=== PATIENT | female | born 1960 | race Caucasian/White ===

== ENCOUNTER 2019-11-23 09:28 | Day surgery (SDC) | payer OTHER, SELFPAY ==
--- OUTSIDE RECORDS SUMMARY | 2019-11-23 10:15 | XMS REPORT | Summary of Care ---
:1960 Author Organization [facility] Address [address] [place] [address] Care Team Providers Name Role Phone RODGER Wayne Primary Care Provider Reason for Referral (Routine) Status Reason Specialty Diagnoses / Referred By Referred To Procedures Contact Contact New Request Orthopedic Surgery Diagnoses Left upper arm pain Julia Wayne Craig Procedures CONSULT/REFERRAL ORTHOPAEDIC SURGERY RODGER Dao MD [address] [place] [address] [address] [phone] Phone: Fax: Reason for Visit Reason Comments Follow-up F-Up on B/P and Shoulder Yudith n -Naproxen not helping Encounter Details Date Type Department Care Team Description 02/08/2019 Office Visit [facility] Family Sylwia Wayne Lef t upper arm pain Medicine - [place] RODGER (Primary Dx) [address] [place] [address] Dr [address] [place] [address] Drive [phone] [facility] [address] [place], [place] [address] Allergies No Known Allergiesdocumented as of this encounter (statuses as of 02/08/2019) Medications Medication Sig Dispensed Refills Start Date End Date Status omeprazole magnesium Take by mouth. 0 Active (PRILOSEC) 10 mg SuDR FA/mv,Ca,iron,min/lycope Take by mouth. 0 Active ne/lut (MULTIVITAL ORAL) Lactobacillus Take by mouth. 0 Active acidophilus (PROBIOTIC ORAL) Diclofenac Sodium 1 % Apply to 100 g 0 02/08/2019 Active gelIndications: Left area(s) 2 (two) upper arm pain times daily. documented as of this encounter (statuses as of 02/08/2019) Active Problems Problem Noted Date Endometrial cancer 08/14/2018 Post-menopausal bleeding 07/22/2018 documented as of this encounter (statuses as of 02/08/2019) Social History Tobacco Use Types Packs/Day Years Used Date Never Smoker Smokeless Tobacco: Never Used Alcohol Use Drinks/Week oz/Week Comments No Sex Assigned at Date Recorded Not on file Job Start Date Occupation Industry Not on file Not on file Not on file Travel History Travel Start Travel End No recent travel history available. documented as of this encounter Last Filed Vital Signs Vital Sign Reading Time Taken Comments Blood Pressure 136/76 02/08/2019 3:36 PM CDT Pulse 63 02/08/2019 3:36 PM CDT Temperature 36.3 C (97.4 F) 02/08/2019 3:36 PM CDT Respiratory Rate - - Oxygen Saturation - - Inhaled Oxygen Concentration - - Weight 98.9 kg (218 lb) 02/08/2019 3:36 PM CDT Height 167.6 cm (5' 6") 02/08/2019 3:36 PM CDT Body Mass Index 35.19 02/08/2019 3:36 PM CDT documented in this encounter Progress Notes Sylwia Wayne, RODGER - 02/08/2019 3:40 PM CDT Cc: Chief Complaint Patient presents with Follow-up F-Up on B/P and Shoulder Pain -Naproxen not helping Nilam Aguiar is a 58 year old female that presents to the clinic to follow up on blood pressure. She has been monitoring blood pressure at home daily- see log scanned in. Average home readings: 120-140/70's. She has not changed her diet or started exercising. She is watching her salt intake. Nilam has continued to have left upper arm/shoulder pain since the last visit. She took the Naproxen as prescribed, tried icy/hot, and has tried some shoulder exercises without relief. Xrays performed during last visit were normal. Arm Pain The incident occurred more than 1 week ago. There was no injury mechanism. The pain is present in the left shoulder and upper left arm. The quality of the pain is described as aching. The pain is at a severity of 6/10. The pain is moderate. The pain has been constant since the incident. Pertinent negatives include no chest pain, muscle weakness, numbness or tingling. The symptoms are aggravated by lifting. She has tried NSAIDs (& icy/hot) for the symptoms. The treatment provided no relief. Allergies Nilam has No Known Allergies. Medications Outpatient Medications Prior to Visit Medication Sig Dispense Refill FA/mv,Ca,iron,min/lycopene/lut (MULTIVITAL ORAL) Take by mouth. Lactobacillus acidophilus (PROBIOTIC ORAL) Take by mouth. omeprazole magnesium (PRILOSEC) 10 mg SuDR Take by mouth. No facility-administered medications prior to visit. Histories Past Medical History: Diagnosis Date Endometrial cancer 08/14/2018 Esophageal reflux Past Surgical History: Procedure Laterality Date CHOLECYSTECTOMY HYSTERECTOMY Aug 2018 TONSILLECTOMY in childhood TUBAL LIGATION Social History Socioeconomic History Marital status: Spouse name: Not on file Number of children: 4 Years of education: Not on file Highest education level: Not on file Occupational History Comment: [employer] Social Needs Financial resource strain: Not on file Food insecurity: Worry: Not on file Inability: Not on file Transportation needs: Medical: Not on file Non-medical: Not on file Tobacco Use Smoking status: Never Smoker Smokeless tobacco: Never Used Substance and Sexual Activity Alcohol use: No Drug use: No Sexual activity: Never Partners: Male control/protection: Surgical Comment: 6-7 years / Lifestyle Physical activity: Days per week: Not on file Minutes per session: Not on file Stress: Not on file Relationships Social connections: Talks on phone: Not on file Gets together: Not on file Attends christianity service: Not on file Active member of club or organization: Not on file Attends meetings of clubs or organizations: Not on file Relationship status: Not on file Intimate partner violence: Fear of current or ex partner: Not on file Emotionally abused: Not on file Physically abused: Not on file Forced sexual activity: Not on file Other Topics Concern Not on file Social History Narrative Denies domestic or physical violence within the home 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 Cardiovascular: Negative for chest pain. Musculoskeletal: Positive for arthralgias (left shoulder) and myalgias (left upper arm). Negative for back pain, gait problem and neck pain. Skin: Negative for rash. Neurological: Negative for tingling and numbness. Psychiatric/Behavioral: Negative for agitation and confusion. Vital Signs BP 136/76 (BP Location: Right arm, Patient Position: Sitting, BP CUFF SIZE: Adult Large) | Pulse 63 | Temp 36.3 C (97.4 F) (Tympanic) | Ht 5' 6" (1.676 m) | Wt 218 lb (98.9 kg) | BMI 35.19 kg/m Physical Exam Constitutional: She is oriented to person, place, and time. She appears well- developed and well-nourished. No distress. HENT: Head: Normocephalic and atraumatic. Eyes: Conjunctivae are normal. Cardiovascular: Normal rate, regular rhythm, normal heart sounds and intact distal pulses. Pulmonary/Chest: Effort normal and breath sounds normal. Musculoskeletal: Left shoulder: She exhibits tenderness. She exhibits no swelling, no crepitus, no deformity, normal pulse and normal strength. Left upper arm: She exhibits tenderness. She exhibits no bony tenderness, no swelling and no deformity. Arms: Negative empty can test. Neurological: She is alert and oriented to person, place, and time. She has normal strength. No sensory deficit. Gait normal. Skin: Skin is warm and dry. No rash noted. Psychiatric: She has a normal mood and affect. Her behavior is normal. Thought content normal. Nursing note and vitals reviewed. HISTORY: Pain for one month. FINDINGS: 2 frontal projection views of left shoulder obtained with the arm in internal and external rotation positions showed no acute fracture or dislocation. No significant changes of arthritis or aggressive bone lesions seen. No calcifications seen in the rotator cuff tendons. No cervical rib. Visualized left upper lung is clear. CONCLUSIONS: Normal study. Assessment/Plan 1. Left upper arm pain - CONSULT/REFERRAL ORTHOPAEDIC SURGERY - Diclofenac Sodium 1 % gel; Apply to area(s) 2 (two) times daily. Dispense: 100 g; Refill: 0 - educated about R.I.C.E.: Rest, Ice, Compress, and Elevate. - Rest and elevate affected area. May apply splint or gunner wrap if needed. - May apply ice pack to area 3-4 times daily, for 10-15 minutes or may use heating pad on low or warm compress 3-4 times daily for 10-15 minutes - May alternate ibuprofen and tylenol for pain or swelling Future Appointments In 2 days Hector Dumont MD [facility] Orthopaedic Surgery- [place], [facility] Plan of care, desired health behaviors, goals, and medication discussed with patient. Education resources provided and reviewed with AVS. Patient/guardian/family verbalized understanding & agrees to plan of care. This visit did not involve counseling and coordination that comprised more than 50% of the visit time. If applicable, the [place] [employer] database was accessed to review any controlled substance prescription claims data. The [employer] Scripts prescription claims data in [employer] was reviewed to assess patient compliance with the medication treatment plan. RODGER Phipps 02/08/2019 3:50 PM documented in this encounter Plan of Treatment Date Type Specialty Care Team Description 02/10/2019 Office Visit Orthopedic Surgery Armaan Dumont MD [address] [place], [place] [phone] Health Maintenance Due Date Last Done Comments HEPATITIS C (HCV) SCREEN 1960 PNEUMOCOCCAL 0-64 YEARS COMBINED SERIES (1 of 3 - 1964 PCV13) DTaP,Tdap,and Td Vaccines (1 - Tdap) 1977 COLONOSCOPY 2008 Zoster Recombinant Vaccine (SHINGRIX) (1 of 2) 2008 INFLUENZA VACCINE 03/14/2019 MAMMOGRAM 08/28/2019 08/28/2018 PAP SMEAR 07/22/2021 07/22/2018 documented as of this encounter Results Not on filedocumented in this encounter Visit Diagnoses Diagnosis Left upper arm pain - Primary Pain in limb documented in this encounter documented as of this encounter
--- OUTSIDE RECORDS SUMMARY | 2019-11-23 10:15 | XMS REPORT | Summary of Care ---
:1960 Author Organization [facility] Address [address] [place] [address] Care Team Providers Name Role Phone RODGER Wayne Primary Care Provider Reason for Referral (Routine) Status Reason Specialty Diagnoses / Referred By Referred To Procedures Contact Contact New Request Orthopedic Surgery Diagnoses Left upper arm pain Julia Wayne Craig Procedures CONSULT/REFERRAL ORTHOPAEDIC SURGERY RODGER Dao MD [address] [place] [address] [address] [phone] Phone: Fax: Reason for Visit Reason Comments Follow-up F-Up on B/P and Shoulder Yudith n -Naproxen not helping Encounter Details Date Type Department Care Team Description 02/08/2019 Office Visit [facility] Family Sylwia Wayne Lef t upper arm pain Medicine - [place] RODGER (Primary Dx) [address] [place] [address] Dr [address] [place] [address] Drive [phone] [facility] [address] [place], [place] [address] Allergies No Known Allergiesdocumented [...] level: Not on file 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 [employer] Social Needs Financial resource strain: Not on [...] file Gets together: Not on file Attends temple service: Not on file Active member of [...] or physical violence within the home 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 Education resources provided and reviewed with AVS. Patient/guardian/family verbalized understanding & agrees to plan of care. This visit did not involve counseling and coordination that comprised more than 50% of the visit time. If applicable, the [place] [employer] database was accessed to review any controlled substance prescription claims data. The [employer] Scripts prescription claims data in [employer] was reviewed to assess patient compliance with the medication treatment plan. RODGER Phipps 02/08/2019 3:50 PM documented in this encounter Plan of Treatment Date Type Specialty Care Team Description 02/10/2019 Office Visit Orthopedic Surgery Armaan Dumont MD [address] [place], [place] [phone] Health Maintenance Due Date [...]
--- OUTSIDE RECORDS SUMMARY | 2019-11-23 10:15 | XMS REPORT ---
:1960 Author Organization [facility] t Address [address] [place] [address] Dr. Quijano [address] [place] [address] Care Team Providers Name Role Phone Yoan SU Unavailable Unavailable Problems This patient has no known problems. Allergies, Adverse Reactions, Alerts This patient has no known allergies or adverse reactions. Medications This patient has no known medications. Results Test Description Test Time Test Comments Text Results Atomic Results Result Comments WOUND CULTURE + GRAM STAIN 2016-11-28 08:51:00 Test Item Value Reference Range Comments CULTURE (BEAKER) (test code = 1095) No growth GRAM STAIN RESULT (BEAKER) (test code = 1123) 1+ WBCs GRAM STAIN RESULT (BEAKER) (test code = 12564) No organisms seen BASIC METABOLIC [id number] 04:26:00 Test Item Value Reference Range Comments SODIUM (BEAKER) (test 140 meq/L 136-145 code = 381) POTASSIUM (BEAKER) (test 3.7 meq/L 3.5-5.1 code = 379) CHLORIDE (BEAKER) (test 110 meq/L 98-107 code = 382) CO2 (BEAKER) (test code = 23 meq/L 22-29 355) BLOOD UREA NITROGEN 11 mg/dL 7-21 (BEAKER) (test code = 354) CREATININE (BEAKER) (test 0.74 mg/dL 0.57-1.25 code = 358) GLUCOSE RANDOM (BEAKER) 150 mg/dL 70-105 (test code = 652) CALCIUM (BEAKER) (test 8.4 mg/dL 8.4-10.2 code = 697) EGFR (BEAKER) (test code 81 mL/min/1.73 sq m EST IMATED GFR IS NOT = 1092) ACCURATE CREA TININE CLEARANCE IN PRE DICTING GLOMERULAR FILTR ATION RATE. ESTIMATED GFR IS NOT APPLICABLE F OR DIALYSIS PATIENT S.
--- OUTSIDE RECORDS SUMMARY | 2019-11-23 10:15 | XMS REPORT | Clinical Summary ---
:[address] [facility] Address [address] [place] [address] Care Team Providers Name Role Phone Elina Kay Primary Care Provider Unavailable Allergies No Known Allergies Medications No known medications Active Problems Problem Noted Date Submandibular abscess 11/26/2016 Social History Tobacco Use Types Packs/Day Years Used Date Never Smoker Sex Assigned at Date Recorded Not on file Job Start Date Occupation Industry Not on file Not on file Not on file Travel History Travel Start Travel End No recent travel history available. Last Filed Vital Signs Not on file Plan of Treatment Not on file Results Not on fileafter 11/22/2018 Insurance Payer Benefit Plan / Group Subscriber ID Type Phone A ddress CIGNA - MGD CARE CIGNA HMO/POS/OPEN ACCESS xxxxxxxxxxx HMO/POS (Home) [address] [place], [place] [id number] Advance Directives For more information, please contact:[address] [phone] Code Status Date Activated Date Inactivated Comments Full Code 11/26/2016 12:53 PM 11/27/2016 4:40 PM This code status was determined by: Patient
--- OUTSIDE RECORDS SUMMARY | 2019-11-23 10:16 | XMS REPORT | Summary of Care ---
:1960 Author Organization [facility] Address [address] [place] [address] Care Team Providers Name Role Phone RODGER Wayne Primary Care Provider Reason for Visit Reason Comments Notification roe called and Insuran ce does not cover Diclofenac Sodium 1 % gel do you want to change it ? Encounter Details Date Type Department Care Team Description 02/17/2019 Telephone [facility] Family Sylwia Wayne, Not ification ([facility] [address] [facility] [address] does not cover [place], [place] Drive Diclofenac Sodium 1 % [phone] [place] [address] gel do you want to [phone] [place] [id number] change it ?) [phone] Allergies No Known Allergiesdocumented as of this encounter (statuses as of 02/17/2019) Medications Medication Sig Dispensed Refills Start Date [...] as of this encounter (statuses as of 02/17/2019) Active Problems Problem Noted Date Endometrial cancer 08/14/2018 Post-menopausal bleeding 07/22/2018 documented as of this encounter (statuses as of 02/17/2019) Social History Tobacco Use Types Packs/Day Years Used Date Never Smoker Smokeless Tobacco: Never Used Alcohol Use Drinks/Week oz/Week Comments No Sex Assigned at Date Recorded Not on file Job Start Date Occupation Industry Not on file Not on file Not on file Travel History Travel Start Travel End No recent travel history available. documented as of this encounter Last Filed Vital Signs Not on filedocumented in this encounter Plan of Treatment Health Maintenance Due Date Last Done Comments [...] filedocumented in this encounter Visit Diagnoses Diagnosis Pain of left lower extremity - Primary documented in this encounter Insurance Payer Benefit Plan / Group Subscriber ID Effective Dates Phone Address Type [place] [place] II [id number] 2018-Present H [place]/PPO/POS documented as of this encounter
--- OUTSIDE RECORDS SUMMARY | 2019-11-23 10:16 | XMS REPORT | Summary of Care ---
:1960 Author Organization [facility] - [facility] Address [address] [place] [address] Care Team Providers Name Role Phone Rosana RODGER Primary Care Provider Encounter Details Date Type Department Care Team Description 02/08/2019 Orders Only [facility] Doctor Unassigned, No [address] [facility] Name [place] [phone] [place] [address] Allergies No Known Allergiesdocumented as of this [...] 07/22/2021 07/22/2018 documented as of this encounter Procedures Procedure Name Priority Date/Time Associated Diagnosis Comme nts PATIENT QUESTIONNAIRE Routine 02/08/2019 12:01 AM CDT documented in this encounter Results Not on filedocumented in this encounter Insurance Payer Benefit Plan / Group Subscriber ID Effective Dates Phone Address Type [place] II [id number] 2018-Present H MO/PPO/POS documented as of this encounter
--- OUTSIDE RECORDS SUMMARY | 2019-11-23 10:16 | XMS REPORT | Summary of Care ---
:1960 Author Organization [facility] - Health Address [address] [place] [address] Care Team Providers Name Role Phone Rosana RODGER Primary Care Provider Encounter Details Date Type Department Care Team Description 02/18/2019 Orders Only [facility] Doctor Unassigned, No 301 [facility] Name [place] [phone] [place] [address] Allergies No Known Allergiesdocumented as of this encounter (statuses as of 02/19/2019) Medications Medication Sig Dispensed Refills Start Date [...] as of this encounter (statuses as of 02/19/2019) Active Problems Problem Noted Date Endometrial cancer 08/14/2018 Post-menopausal bleeding 07/22/2018 documented as of this encounter (statuses as of 02/19/2019) Social History Tobacco Use Types Packs/Day Years [...] Name Priority Date/Time Associated Diagnosis Comme nts REFERRAL- Routine 02/18/2019 12:01 AM CDT REQUEST/RESPONSE documented in this encounter Results Not on filedocumented in this encounter Insurance Payer Benefit Plan / Group Subscriber ID Effective Dates Phone Address Type [place] II [id number] 2018-Present H [place]/PPO/POS documented as of this encounter
--- OUTSIDE RECORDS SUMMARY | 2019-11-23 10:16 | XMS REPORT | Summary of Care ---
:1960 Author Organization [facility] [place] - [facility] Address [address] [place] [address] Care Team Providers Name Role Phone RODGER Wayne Primary Care Provider Reason for Referral (Routine) Status Reason Specialty Diagnoses / Referred By Referred To Procedures Contact Contact New Request Location Physical Diagnoses Adhesive capsulitis of left shoulder [facility] Preference Therapy Procedures CONSULT/REFERRAL PHYSICAL THERAPY S, PAC [address] [place] [address] [place] [address] Reason for Visit Reason Comments New Patient Shoulder Pain Left shoulder pain, denies i njury (Routine) Status Reason Specialty Diagnoses / Referred By Referred To Procedures Contact Contact Closed Orthopedic Surgery Diagnoses Left upper arm pain Julia Wayne Craig Procedures CONSULT/REFERRAL ORTHOPAEDIC SURGERY RODGER Dao MD [address] [place] [address] [place] [address] Phone: Fax: Encounter Details Date Type Department Care Team Description 02/10/2019 Office Visit [facility]opaedic Hector Dumotn dhesive capsulitis of Surgery- Dorita Sommer MD left shoulder (Primary [address], [address] [facility] [address]x) [address] [place] [address] [place], [place] [phone] [address] Allergies No Known Allergiesdocumented as of this encounter (statuses as of 02/10/2019) Medications Medication Sig Dispensed Refills Start Date [...] as of this encounter (statuses as of 02/10/2019) Active Problems Problem Noted Date Endometrial cancer 08/14/2018 Post-menopausal bleeding 07/22/2018 documented as of this encounter (statuses as of 02/10/2019) Social History Tobacco Use Types Packs/Day Years [...] Sign Reading Time Taken Comments Blood Pressure 125/75 02/10/2019 2:33 PM CDT Pulse 68 02/10/2019 2:33 PM CDT Temperature - - Respiratory Rate 18 02/10/2019 2:33 PM CDT Oxygen Saturation - - Inhaled Oxygen Concentration - - Weight 98.9 kg (218 lb) 02/10/2019 2:33 PM CDT Height 167.6 cm (5' 6") 02/10/2019 2:33 PM CDT Body Mass Index 35.19 02/10/2019 2:33 PM CDT documented in this encounter Patient Instructions Patient InstructionsBaJaren valle PAC - 02/10/2019 2:45 PM CDT documented in this encounter Progress Notes [facility] PAC - 02/10/2019 2:45 PM CDT Nilam Aguiar is a 58 year old female Chief Complaint Patient presents with New Patient Shoulder Pain Left shoulder pain, denies injury Vitals: 02/10/19 1433 BP: 125/75 BP Location: Right arm Patient Position: Sitting BP CUFF SIZE: Adult Large Pulse: 68 Resp: 18 Weight: 98.9 kg (218 lb) Height: 66" (167.6 cm) [id number] - [place], [place] - [address] [facility] [address] Patient presents with left shoulder pain Denies injury Onset: 2 months ago EPIC films All Vitals taken, allergies and all medications reviewed, fall risk assessed. Pain level 6/10. SABINO DAVID MA 02/10/2019 2:38 PM Nilam Aguiar is a 58 year old female. Onset December 12, 2018 she developed pain in her left shoulder she has been to see her primary care PA Naz who felt there was a muscular problem x-rays were obtained that were negative. 12/21 pain that's exacerbated with weed eating also exacerbated with sleeping on the left side. He has tried Aspercreme Motrin Tylenol and a home exercise program of exercises from physical therapy. Allergies Nilam has No Known Allergies. Medications Outpatient Medications Prior to Visit Medication Sig Dispense Refill Diclofenac Sodium 1 % gel Apply to area(s) 2 (two) times daily. 100 g 0 FA/mv,Ca,iron,min/lycopene/lut (MULTIVITAL ORAL) Take by mouth. 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 HENT: Negative. Eyes: Negative. Respiratory: Negative. Breasts: Negative. Cardiovascular: Negative. Gastrointestinal: Negative. Genitourinary: Negative. Musculoskeletal: Positive for joint swelling. Skin: Negative. Neurological: Negative. Psychiatric/Behavioral: Negative. Endocrine: Endocrine negative Vital Signs BP 125/75 (BP Location: Right arm, Patient Position: Sitting, BP CUFF SIZE: Adult Large) | Pulse 68 | Resp 18 | Ht 66" (167.6 cm) | Wt 98.9 kg (218 lb) | BMI 35.19 kg/m Physical Exam Musculoskeletal: Arms: Physical Exam Constitutional: oriented to person, place, and time. appears well-developed and well-nourished. HENT: Head: Normocephalic and atraumatic. Right Ear: External ear normal. Left Ear: External ear normal. Eyes: Conjunctivae are normal. Neck: Normal range of motion. No strabismus Neck supple. Cardiovascular: Normal rate and regular rhythm. Pulmonary/Chest: Normal respiratory rate equal chest rise and fall in no apparent distress Abdominal: Abdomen nondistended nontender Neurological: alert and oriented to person, place, and time. No asymmetry Skin: Skin is warm and dry. Psychiatric: normal mood and affect. behavior is normal. Judgment and thought content normal. Nursing note and vitals reviewed. He can only abduct to 85 with a firm endpoint she is also limited in external rotation only 5 onthe left as opposed to 20 on the right this is a frozen shoulder HISTORY: Pain for one month. FINDINGS: AP and lateral views of left humerus showed no acute fracture or dislocation. No significant changes of arthritis or aggressive bone lesions seen. CONCLUSIONS: Normal study. HISTORY: Pain for one month. FINDINGS: 2 frontal projection views of left shoulder obtained with the arm in internal and external rotation positions showed no acute fracture or dislocation. No significant changes of arthritis or aggressive bone lesions seen. No calcifications seen in the rotator cuff tendons. No cervical rib. Visualized left upper lung is clear. CONCLUSIONS: Normal study. Assessment/Plan Diagnosis 1. Adhesive capsulitis of left shoulder Plan We discussed the exercises for frozen shoulder including wall crawl and using a rope and adele, also using a stick for external rotation it is difficult to recover from frozen shoulder and she will likely have to attend physical therapy she can try a home exercise program first but if she is not making progress I have given her written orders today If she is not making progress she will come in for a cortisone injection documented in this encounter Plan of Treatment Health [...] filedocumented in this encounter Visit Diagnoses Diagnosis Adhesive capsulitis of left shoulder - P rimary Adhesive capsulitis of shoulder documented in this encounter documented as of this encounter
--- OUTSIDE RECORDS SUMMARY | 2019-11-23 10:16 | XMS REPORT | Summary of Care ---
:1960 Author Organization [facility] Address [address] [place] [address] Care Team Providers Name Role Phone RODGER Wayne Primary Care Provider Reason for Referral (Routine) Status Reason Specialty Diagnoses / Referred By Referred To Procedures Contact Contact New Request Location Physical Diagnoses Adhesive capsulitis of left shoulder [facility] Preference Therapy Procedures CONSULT/REFERRAL PHYSICAL THERAPY S, PAC [address] [place] [address] Reason for Visit Reason Comments New Patient Shoulder Pain Left shoulder pain, denies i njury (Routine) Status Reason Specialty Diagnoses / Referred By Referred To Procedures Contact Contact Closed Orthopedic Surgery Diagnoses Left upper arm pain Julia Wayne Craig Procedures CONSULT/REFERRAL ORTHOPAEDIC SURGERY RODGER Dao MD [address] [place] [address] Phone: Fax: Encounter Details Date Type Department Care Team Description 02/10/2019 Office Visit [facility] Orthopaedic Hector Dumont dhesive capsulitis of Surgery- Dorita Sommer MD left shoulder (Primary [address], [address]) [place] [address] [place] [address] [place], [place] [phone] [address] Allergies No Known Allergiesdocumented as of [...] kg (218 lb) Height: 66" (167.6 cm) [facility][id number] - [place], [place] - [address] [facility] Patient presents with left [...] level: Not on file 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
--- OUTSIDE RECORDS SUMMARY | 2019-11-23 10:16 | XMS REPORT | Summary of Care ---
:1960 Author Organization [facility] Address [address] [place] [address] Care Team Providers Name Role Phone RODGER Wayne Primary Care Provider Reason for Visit Reason Comments Rx Concern/Question Encounter Details Date Type Department Care Team Description 02/15/2019 Telephone [facility] Family Sylwia Wayne, Rx Concern/Question Medicine [address] [address] [facility] [address] [place], [place] [address] [phone] Allergies No Known Allergiesdocumented as of this [...] Dates Phone Address Type CORTEZ TORO II [id number] 2018-Present H MO/PPO/POS documented as of this encounter
--- OUTSIDE RECORDS SUMMARY | 2019-11-23 10:16 | XMS REPORT | Summary of Care ---
:1960 Author Organization [facility] - [facility] Address [address] [place] [address] Care Team Providers Name Role Phone Rosana RODGER Primary Care Provider Encounter Details Date Type Department Care Team Description 03/19/2019 Orders Only [facility] Doctor Unassigned, No [address] [facility] Name [place] [phone] [place] [address] Allergies No Known Allergiesdocumented as of this encounter (statuses as of 03/31/2019) Medications Medication Sig Dispensed Refills Start Date [...] as of this encounter (statuses as of 03/31/2019) Active Problems Problem Noted Date Endometrial cancer 08/14/2018 Post-menopausal bleeding 07/22/2018 documented as of this encounter (statuses as of 03/31/2019) Social History Tobacco Use Types Packs/Day Years [...] (SHINGRIX) (1 of 2) 2008 INFLUENZA VACCINE (#1) 2019 MAMMOGRAM 08/28/2019 08/28/2018 PAP SMEAR 07/22/2021 07/22/2018 documented as of this encounter Procedures Procedure Name Priority Date/Time Associated Diagnosis Comme nts REFERRAL- Routine 03/19/2019 12:01 AM CDT REQUEST/RESPONSE documented in this encounter Results Not on filedocumented in this encounter Insurance Payer Benefit Plan / Group Subscriber ID Effective Dates Phone Address Type CORTEZ TORO II [id number] 2018-Present H [place]/PPO/POS documented as of this encounter
--- OUTSIDE RECORDS SUMMARY | 2019-11-23 10:16 | XMS REPORT | Summary of Care ---
:1960 Author Organization [facility] Address [address] [place] [address] Care Team Providers Name Role Phone RODGER Wayne Primary Care Provider Reason for Referral (Routine) Status Reason Specialty Diagnoses / Referred By Referred To Procedures Contact Contact Closed Location Physical Therapy Diagnoses Adhesive capsulitis of left shoulder [facility] Keith Preference Procedures CONSULT/REFERRAL PHYSICAL THERAPY S, PAC [place] [address] [facility] [place] [address] [place] [address] Phone: Fax: Reason for Visit Reason Comments New Patient Shoulder Pain Left shoulder pain, denies i njury (Routine) Status Reason Specialty Diagnoses / Referred By Referred To Procedures Contact Contact Closed Orthopedic Surgery Diagnoses Left upper arm pain Julia Wayne Craig Procedures CONSULT/REFERRAL ORTHOPAEDIC SURGERY RODGER Dao MD [address] [place] [address] [address] [facility] [address] [place] [address] Phone: Fax: Encounter Details Date Type Department Care Team Description 02/10/2019 Office Visit [facility] Orthopaedic Hector Dumont dhesive capsulitis of Surgery- Dorita Sommer MD left shoulder (Primary [address] [facility], [address] [place] [address] [address]) [address] [place] [address] [place], [place] [phone] [address] [phone] Allergies No Known Allergiesdocumented as of this [...] documented in this encounter Patient Instructions Patient InstructionsJaren Heart PAC - 02/10/2019 2:45 PM CDT documented [...] kg (218 lb) Height: 66" (167.6 cm) [id number] [place] [address] [address] [facility] Patient presents with left [...] problem x-rays were obtained that were negative. 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
--- NOTE | 2019-11-23 10:20 | EDPHYS ---
Physician Documentation [facility] Name: Nilam Aguiar Age: 59 yrs Sex: Female : 1960 Arrival Date: 11/23/2019 Time: 09:29 Bed 6 Private MD: Peter Lee H ED Physician Les Rollins HPI: 11/22 10:14 This 59 yrs old Female presents to ER via Ambulatory with complaints of irvin Foreign Body In Throat. 10:14 The patient presents to the emergency department with nausea, vomiting, that is irvin intermittent. Onset: The symptoms/episode began/occurred yesterday. Possible causes: food bolus in esophgus. The symptoms are aggravated by nothing. The symptoms are alleviated by nothing. Associated signs and symptoms: The patient has no apparent associated signs or symptoms. Severity of symptoms: At their worst the symptoms were mild in the emergency department the symptoms are unchanged. The patient has experienced similar episodes in the past, a few times. Historical: - Allergies: 09:52 No Known Allergies; iw - Home Meds: 09:52 Prilosec Oral [Active]; Probiotic oral oral daily [Active]; iw - PMHx: 10:30 GERD; Hernia; Endometrial cancer; aa5 - PSHx: 09:52 Cholecystectomy; Hysterectomy; iw - Immunization history:: Adult Immunizations up to date. - Social history:: Smoking status: Patient denies any tobacco usage or history of. - Family history:: not pertinent. ROS: 10:15 Constitutional: Negative for fever, chills, and weight loss, Eyes: Negative for injury, irvin pain, redness, and discharge, ENT: Negative for injury, pain, and discharge, Neck: Negative for injury, pain, and swelling, Cardiovascular: Negative for chest pain, palpitations, and edema, Respiratory: Negative for shortness of breath, cough, wheezing, and pleuritic chest pain, Back: Negative for injury and pain, : Negative for injury, bleeding, discharge, and swelling, MS/Extremity: Negative for injury and deformity, Skin: Negative for injury, rash, and discoloration, Neuro: Negative for headache, weakness, numbness, tingling, and seizure, Psych: Negative for depression, anxiety, suicide ideation, homicidal ideation, and hallucinations, Allergy/Immunology: Negative for hives, rash, and allergies, Endocrine: Negative for neck swelling, polydipsia, polyuria, polyphagia, and marked weight changes. 10:15 Abdomen/GI: Positive for nausea, vomiting, food bolus in esophogus. Exam: 10:15 Constitutional: This is a well developed, well nourished patient who is awake, alert, irvin and in no acute distress. Head/Face: Normocephalic, atraumatic. Eyes: Pupils equal round and reactive to light, extra-ocular motions intact. Lids and lashes normal. Conjunctiva and sclera are non-icteric and not injected. Cornea within normal limits. Periorbital areas with no swelling, redness, or edema. ENT: Nares patent. No nasal discharge, no septal abnormalities noted. Tympanic membranes are normal and external auditory canals are clear. Oropharynx with no redness, swelling, or masses, exudates, or evidence of obstruction, uvula midline. Mucous membranes moist. Neck: Trachea midline, no thyromegaly or masses palpated, and no cervical lymphadenopathy. Supple, full range of motion without nuchal rigidity, or vertebral point tenderness. No Meningismus. Chest/axilla: Normal chest wall appearance and motion. Nontender with no deformity. No lesions are appreciated. Cardiovascular: Regular rate and rhythm with a normal S1 and S2. No gallops, murmurs, or rubs. Normal PMI, no JVD. No pulse deficits. Respiratory: Lungs have equal breath sounds bilaterally, clear to auscultation and percussion. No rales, rhonchi or wheezes noted. No increased work of breathing, no retractions or nasal flaring. Abdomen/GI: Soft, non-tender, with normal bowel sounds. No distension or tympany. No guarding or rebound. No evidence of tenderness throughout. Back: No spinal tenderness. No costovertebral tenderness. Full range of motion. Female : Normal external genitalia. Skin: Warm, dry with normal turgor. Normal color with no rashes, no lesions, and no evidence of cellulitis. MS/ Extremity: Pulses equal, no cyanosis. Neurovascular intact. Full, normal range of motion. Neuro: Awake and alert, GCS 15, oriented to person, place, time, and situation. Cranial nerves II-XII grossly intact. Motor strength 5/5 in all extremities. Sensory grossly intact. Cerebellar exam normal. Normal gait. Psych: Awake, alert, with orientation to person, place and time. Behavior, mood, and affect are within normal limits. 10:34 ECG was reviewed by the Attending Physician. [facility] Vital Signs: 09:46 BP 144 / 93; Pulse 82; Resp 16; Temp 98.0; Pulse Ox 96% on R/A; Weight 94.35 kg; Height iw 5 ft. 10 in. (177.80 cm); Pain 0/10; 09:46 Body Mass Index 29.84 (94.35 kg, 177.80 cm) iw MDM: 09:45 Patient medically screened. irvin 10:17 Differential diagnosis: Nonspecific abd pain, food bolus in esophogus. Data reviewed: [facility] vital signs, nurses notes, lab test result(s), EKG, radiologic studies, plain films. Test interpretation: by ED physician or midlevel provider: ECG, plain radiologic studies. Counseling: I had a detailed discussion with the patient and/or guardian regarding: the historical points, exam findings, and any diagnostic results supporting the discharge/admit diagnosis, lab results, radiology results, the need for further work-up and treatment in the hospital, needs endoscopy. ED course: plan to admit to dr bertram bonilla, aware, pat aware as well. 10:40 Data interpreted: monitoring tech: rate is 82 beats/min, Pulse oximetry: on room air is irvin 96 %. ED course: to egd, housekeeping cleaner aware. 11/22 10:13 Order name: CBC with Diff; Complete Time: 11:11 [facility] 11/22 10:13 Order name: Comprehensive Metabolic Panel; Complete Time: 11:11 [facility] 11/22 10:13 Order name: Chest Single View XRAY [facility] 11/22 10:58 Order name: RAD; Complete Time: 11:11 EDMS 11/22 10:13 Order name: EKG; Complete Time: 10:14 [facility] 11/22 10:13 Order name: EKG - Nurse/Tech; Complete Time: 10:47 [facility] 11/22 10:29 Order name: NPO; Complete Time: 10:47 EDMS EC:34 Rate is 87 beats/min. Rhythm is regular. QRS [place] is Normal. WI interval is normal. QRS irvin interval is normal. QT interval is normal. No Q waves. T waves are Normal. No ST changes noted. Clinical impression: Normal ECG and No evidence of ischemia. Interpreted by me. Reviewed by me. Administered Medications: 10:40 Drug: NS 0.9% 1000 ml Route: IV; Rate: 1 bolus; Site: right hand; aa5 10:40 Drug: Zofran (Ondansetron) 4 mg Route: IVP; Site: right hand; aa5 10:42 Drug: Glucagon 1 mg Route: IVP; Site: right hand; aa5 Disposition: 11/23/19 10:20 Hospitalization ordered by Peter Lee for Observation. Preliminary diagnosis is Esophageal obstruction - food bolus. - Bed requested for DAY SURGERY OTHER. - Status is Observation. iw - Condition is Stable. - Problem is new. - Symptoms are unchanged. Signatures: Dispatcher [employer] EDLes Perkins MD MD cha Williams, Irene, RN RN Vangie Gonzalez RN RN aa5 Corrections: (The following items were deleted from the chart) 11:12 10:20 Hospitalization Ordered by ePter Lee MD for Observation. Preliminary iw diagnosis is Esophageal obstruction - food bolus. Bed requested for DAY SURGERY OTHER. Status is Observation. Condition is Stable. Problem is new. Symptoms are unchanged. irvin
--- NOTE | 2019-11-23 10:20 | ER ---
Nurse's Notes [facility] Name: Nilam Aguiar Age: 59 yrs Sex: Female : 1960 Arrival Date: 11/23/2019 Time: 09:29 Bed 6 Private MD: Peter Lee H Diagnosis: Esophageal obstruction-food bolus Presentation: 11/22 09:46 Chief complaint: Patient states: has a piece of meat stuck in throat since yesterday at 1:30 pm, vomited her coffee this a.m. , called Dr. Lee this am and was told to come in. Coronavirus screen: Proceed with normal triage. Patient denies a cough. Patient denies shortness of breath or difficulty breathing. Patient denies measured and/or subjective temperature greater than 100.4F prior to today's visit. Patient denies travel on a cruise ship or to a country the [facility] currently lists as an affected area. Patient denies contact with known and/or suspected case of COVID-19. Ebola Screen: Patient negative for fever greater than or equal to 101.5 degrees Fahrenheit, and additional compatible Ebola Virus Disease symptoms Patient denies exposure to infectious person. Patient denies travel to an Ebola-affected area in the 21 days before illness onset. No symptoms or risks identified at this time. Initial Sepsis Screen: Does the patient meet any 2 criteria? No. Patient's initial sepsis screen is negative. Does the patient have a suspected source of infection? No. Patient's initial sepsis screen is negative. Risk Assessment: Do you want to hurt yourself or someone else? Patient reports no desire to harm self or others. Onset of symptoms was November 22, 2019. 09:46 Method Of Arrival: Ambulatory iw 09:46 Acuity: PATRICIO 3 iw Historical: - Allergies: 09:52 No Known Allergies; iw - Home Meds: 09:52 Prilosec Oral [Active]; Probiotic oral oral daily [Active]; iw - PMHx: 10:30 GERD; Hernia; Endometrial cancer; aa5 - PSHx: 09:52 Cholecystectomy; Hysterectomy; iw - Immunization history:: Adult Immunizations up to date. - Social history:: Smoking status: Patient denies any tobacco usage or history of. - Family history:: not pertinent. Screenin:00 Abuse screen: Denies threats or abuse. Nutritional screening: No deficits noted. aa5 Tuberculosis screening: No symptoms or risk factors identified. Fall Risk None identified. Assessment: 10:00 General: Appears comfortable, Behavior is calm, cooperative. Pain: Denies pain. Neuro: aa5 Level of Consciousness is awake, alert, obeys commands, Oriented to person, place, time, situation. Cardiovascular: Patient's skin is warm and dry. Pt states she feels food bolus to mid-sternal area. . Respiratory: Airway is patent Respiratory effort is even, unlabored, Respiratory pattern is regular, symmetrical. GI: No signs and/or symptoms were reported involving the gastrointestinal system. : No signs and/or symptoms were reported regarding the genitourinary system. EENT: Throat is clear Clear voice noted . Derm: Skin is pink, warm \T\ dry. Musculoskeletal: Range of motion: intact in all extremities. 10:42 Reassessment: Patient is alert, oriented x 3, equal unlabored respirations, skin aa5 warm/dry/pink. Pt notified of wait time for lab results. Pt sitting up in bed watching TV at this time. . 11:10 Reassessment: No changes from previously documented assessment. aa5 Vital Signs: 09:46 BP 144 / 93; Pulse 82; Resp 16; Temp 98.0; Pulse Ox 96% on R/A; Weight 94.35 kg; Height iw 5 ft. 10 in. (177.80 cm); Pain 0/10; 09:46 Body Mass Index 29.84 (94.35 kg, 177.80 cm) iw ED Course: 09:29 Patient arrived in ED. ag5 09:30 Peter Lee MD is Private Physician. ag5 09:31 Les Rollins MD is Attending Physician. irvin 09:48 Vangie Brenner, ENRIQUE is Primary Nurse. aa5 09:48 Triage completed. iw 09:52 Arm band placed on. iw 10:00 Patient has correct armband on for positive identification. Bed in low position. Call aa5 light in reach. Side rails up X 1. Pulse ox on. NIBP on. 10:19 Peter Lee MD is Hospitalizing Provider. irvin 10:37 Missed attempt(s): 22 gauge in right hand. Bleeding controlled, band aid applied, aa5 catheter tip intact. 10:39 EKG done, by fire protection equipment technician. reviewed by Les Rollins MD. tc 10:42 Inserted saline lock: 22 gauge in right hand, using aseptic technique. aa5 11:10 No provider procedures requiring assistance completed. Patient admitted, IV remains in aa5 place. Administered Medications: 10:40 Drug: NS 0.9% 1000 ml Route: IV; Rate: 1 bolus; Site: right hand; aa5 10:40 Drug: Zofran (Ondansetron) 4 mg Route: IVP; Site: right hand; aa5 10:42 Drug: Glucagon 1 mg Route: IVP; Site: right hand; aa5 Outcome: 10:20 Decision to Hospitalize by Provider. irvin 11:10 Admitted to OR accompanied by nurse, via stretcher, with chart, Report called to hansel Marie RN 11:10 Condition: stable 11:10 Instructed on the need for admit, Demonstrated understanding of instructions. 11:12 Patient left the ED. iw Signatures: Les Rollins MD MD cha Williams, Irene, RN Vangie Ackerman RN RN aa Allyson Felix, account receivable clerk EKG Ttc Angel Powell [facility]
[2019-11-23] MEDS ORDERED: ONDANSETRON 4 MG/2 ML VIAL ONE (10:23)
[2019-11-23] MEDS ORDERED: NA CHLORIDE 0.9% 0 ML ONE (10:23)
[2019-11-23] MEDS ORDERED: GLUCAGON 1 MG/VIAL ONE (10:23)
[2019-11-23] MEDS ORDERED: ONDANSETRON 4 MG/2 ML VIAL IV PRN (10:27)
[2019-11-23 10:50] LABS: Absolute Lymphocytes (CBC) 1.3 K/uL (0.7-4.9); Basophils % 0.5 % (0-1.3); Hematocrit 41.2 % (36.0-45.0); MPV 9.5 fL (7.6-11.3)
--- NOTE | 2019-11-23 10:56 | RAD REPORT ---
EXAM DESCRIPTION: RAD - Chest Single View - 11/23/2019 10:50 am CLINICAL HISTORY: CHEST PAIN Chest pain. COMPARISON: No comparisons FINDINGS: Portable technique limits examination quality. The lungs are grossly clear. The heart is normal in size. Small hiatal hernia. IMPRESSION: No acute intrathoracic process suspected.
[2019-11-23] MEDS ORDERED: NA CHLORIDE 0.9% 1,000 ML IV SCH (11:00)
[2019-11-23] MEDS ORDERED: NA CHLORIDE 0.9% 1,000 ML ONE (11:03)
[2019-11-23 11:07] LABS: Albumin 4.1 g/dL (3.4-5.0); Bilirubin Total 0.7 mg/dL (0.2-1.0); Potassium 3.7 mmol/L (3.5-5.1); Protein, Total 8.4 g/dL (6.4-8.2)
--- OUTSIDE RECORDS SUMMARY | 2019-11-23 11:07 | XMS REPORT | Clinical Summary ---
:1960 Author Organization [facility] Address [address] [place] [id number] Care Team Providers Name Role Phone Elina [...] CIGNA HMO/POS/OPEN ACCESS xxxxxxxxxxx HMO/POS (Home) [address] [place], [place] [address] Advance Directives For more information, please contact:[address] [phone] Code Status Date Activated Date Inactivated Comments Full Code 11/26/2016 12:53 PM 11/27/2016 4:40 PM This code status was determined by: Patient
--- OUTSIDE RECORDS SUMMARY | 2019-11-23 11:07 | XMS REPORT ---
:1960 Author Organization [facility] t Address [address] [address] Dr. Quijano [address] [place] [id number] Care Team Providers Name Role Phone Yoan [...] GRAM STAIN RESULT (BEAKER) (test code = 09889) No organisms seen BASIC METABOLIC [id number] 04:26:00 Test Item Value Reference Range Comments [...]
--- NOTE | 2019-11-23 11:13 | EKG ---
Test Date: 2019-11-23 Test Time: 10:34:56 Pest Controller: ALICJA T MEASUREMENT RESULTS: Intervals: Rate: 87 ME: 118 QRSD: 82 QT: 372 QTc: 447 [place]: P: 12 ME: 118 QRS: 27 T: 35 INTERPRETIVE STATEMENTS: Normal sinus rhythm Normal ECG Compared to ECG 11/26/2016 05:01:13 No significant changes Electronically Signed On 11-23-19 11:12:22 CDT by Mando Boggs
[2019-11-23] MEDS ORDERED: propofoL 200 MG/20 ML VIAL IV ONE (11:40)
[2019-11-23] MEDS ORDERED: LIDOCAINE 1% MPF 5 ML VIAL ONE (11:40)
[2019-11-23] MEDS ORDERED: MIDAZOLAM HCL 2 MG/2 ML INJ ONE (11:40)
--- NOTE | 2019-11-23 12:37 | ENDO RPT ---
[address], [address] EGD PROCEDURE REPORT EXAM DATE: 11/23/2019 PATIENT NAME: Nilam Aguiar MR#: [id number] BIRTHDATE: 1960 ATTENDING: Peter Lee Dr STATUS: outpatient AERONAUTICAL ENGINEER: Angelique Tran RN and Mckinley Vital RN INDICATIONS: The patient is a 59 yr old Female here for an EGD due to foreign body / meat bolus impaction (ribs) and dysphagia PROCEDURE PERFORMED: EGD with foreign body removal MEDICATIONS: Per Anesthesia. TOPICAL ANESTHETIC: none CONSENT: The patient understands the risks and benefits of the procedure and understands that these risks include, but are not limited to: sedation, allergic reaction, infection, perforation and/or bleeding. Alternative means of evaluation and treatment include, among others: physical exam, x-rays, and/or surgical intervention. The patient elects to proceed with this endoscopic procedure. DESCRIPTION OF PROCEDURE: During intra-op preparation period all mechanical medical equipment was checked for proper function. Hand hygiene and appropriate measures for infection prevention was taken. Procedure, possible complications, and alternatives including but not limited to the possibility of bleeding, perforation, tear, infection, sepsis, need for surgery, need for blood transfusion, and anesthesia related complications were explained to the patient. After the risks, benefits and alternatives of the procedure were thoroughly explained, Informed consent was verified, confirmed and timeout was successfully executed by the treatment team. The patient was placed in the left lateral position. The patient was anesthetized with topical anesthesia. Through the anesthetized oropharyngeal area, the scope was passed without any difficulty. The [id number] ([id number]) endoscope was introduced through the mouth and advanced to the second portion of the duodenum. Retroflexed views revealed a large hiatal hernia. The gastroscope was then slowly withdrawn and removed. A mild stricture was found in the lower esophagus. A large hiatal hernia was found ADVERSE EVENTS: There were no complications. to stomach with endoscope 2. Mild stricture in the lower esophagus 3. Large hiatal hernia RECOMMENDATIONS: acid suppression therapy REPEAT EXAM: Return in 1 week(s) for EGD with dilatation. Peter Lee Dr eSigned: Peter Lee Dr 11/23/2019 12:36 PM cc: Les Rollins M.D. CPT CODES: ICD9 CODES: PATIENT NAME: Nilam Aguiar MR#: [id number]
[2019-11-23] MEDS ORDERED: CEFAZOLIN/SWI 1gm 2 GM/20 ML SYR ONE (12:41)
[2019-11-23 15:42] VITALS: O2SAT 98
[2019-11-23 15:43] VITALS: BP 128/85; TEMP 97.9
--- NOTE | 2019-11-25 09:36 | CON ---
Date of Consultation: 11/23/2019 Reason For Consultation: Foreign body impaction in the esophagus and dysphagia to solids, liquids, a nd saliva. History Of Present Illness: Patient is a 59-year-old white female with history of gastric reflux dis ease; hiatal hernia; endometrial colonic cancer, status post hysterectomy. Patient presented to the hospital due to dysphagia to solids, liquids, and saliva after eating ribs. Patient states that she usually chews her food well, but thinks she was just really hungry and swallowed fast. Since that ti me, she has been having dysphagia to solids, liquids, and saliva; unable to pass it. She also has so me mild occasional nausea, vomiting. No fevers, chills, night sweats. No hematemesis, coffee-ground s emesis, melena, hematochezia, abdominal pain, fevers, chills, night sweats, chest pain, shortness o f breath, seizure, syncope. Review of Systems: As per above with dysphagia to solids, liquids, saliva. Occasional nausea, vomiting, but no fevers, chills, night sweats, heat or cold intolerance, chest pain, shortness of breath, seizure, syncope, lo wer extremity muscle aches, joint aches, backaches, hematemesis, coffee-grounds emesis, hematuria, dy suria, polydipsia, melena, hematochezia, hemoptysis. No depression or anxiety. Home Medications: Include Prilosec and probiotics. Allergies: NKDA. Social History: She is a , 4 children. No tobacco. No alcohol. Family History: Father is alive with diabetes, hypertension, stroke. Mother is alive with diabetes, hypertension. Laboratory Data: He has a sodium 145, potassium 3.7, chloride 113, bicarb 26, BUN 17, creatinine of 1.11, glucose 118, calcium 9.4, total bilirubin 0.7, AST of 15, ALT of 14, alkaline phosphatase 92, t otal protein 8.4, albumin 4.1. White count of 9.8, hemoglobin of 13.7, hematocrit of 41.2, MCV of 90 , platelet count 209, polys of 80%, lymphocytes 13%, monocytes 6%, eosinophils 1%. She has trace blo od, pending nitrite. Imaging Data: She did have a chest x-ray. This chest x-ray was negative. Normal heart size. Hiata l hernia was noted. Impression: 1.Dysphagia to solids, liquids, saliva after eating ribs with esophageal meat bolus impaction suspec gris. Patient states she feels like the food and liquids get stuck in the upper chest suprasternal no tch area. It has been happening since chewing the ribs, so she thinks she ate too fast because she w as really hungry. Patient has occasional nausea and vomiting. 2.History of gastric reflux disease, hiatal hernia, and obesity. 3.Endometrial cancer, status post hysterectomy and laparoscopic cholecystectomy. Recommendation: 1.Proceed with the EGD for evaluation and possible removal of food/meat bolus impaction in the esoph gregory urgently. 2.IV fluids. 3.Keep patient n.p.o. ELSA/CHARISSA Voice ID: [id number] Report ID: [id number]
== END 2019-11-23 13:45 | disposition home or self-care (01) ==
LOC: ER 09:28 → DS 10:26
PROVIDERS: ATTEND Internal Medicine Gastroenterology
PROC: 0DC38ZZ Extirpation of Matter from Lower Esophagus, Via Natural or Artificial Opening Endoscopic (ICD-10-PCS; principal; 2019-11-23 10:00)
DX: T18.128A Food in esophagus causing other injury, initial encounter (principal); K22.2 Esophageal obstruction; K44.9 Diaphragmatic hernia without obstruction or gangrene; K21.9 Gastro-esophageal reflux disease without esophagitis; E66.9 Obesity, unspecified; Z90.49 Acquired absence of other specified parts of digestive tract; Z90.710 Acquired absence of both cervix and uterus; Z85.42 Personal history of malignant neoplasm of other parts of uterus; Z82.3 Family history of stroke; Z83.3 Family history of diabetes mellitus; Z82.49 Family history of ischemic heart disease and other diseases of the circulatory system
CPT/HCPCS: 36415; 71045; 80053; 85025; 93005; 96374; 96375; 99285; J0690; J1610; J2250; J2405; J2704; J7030